=== PATIENT | female | born 1985 | race Caucasian/White ===

== ENCOUNTER 2022-07-27 23:00 | Emergency (ER) | END 2022-07-28 00:03 | disposition left against medical advice (07) | LOC: ERS 23:00 | DX: Z53.21 Procedure and treatment not carried out due to patient leaving prior to being seen by health care provider (principal) ==

== ENCOUNTER 2023-01-14 17:21 | Emergency (ER) | payer SELFPAY ==
[2023-01-14 19:59] LABS: #Basophils 0.1 thou/uL (0.0-0.2); #Eosinphils 0.2 thou/uL (0.0-0.7); #Lymphocytes 1.8 thou/uL (1.20-3.40); #Monocytes 0.5 thou/uL (0.11-0.59); #Neutrophils 3.9 thou/uL (1.40-6.50); %Basophils 1.1 % (0.0-1.0); %Eosinophils 3.4 % (0.0-10.0); %Lymphocytes 28.1 % (21.0-51.0); %Monocytes 7.3 % (0.0-10.0); Hemoglobin 13.3 g/dL (12.0-16.0); Mean Corpuscular HGB CONC 34.8 g/dL (32.0-36.0); Mean Corpuscular Hemoglobin 29.9 pg (27.0-31.0); Mean Corpuscular Volume 85.7 fl (78.0-98.0); Mean Platelet Volume 8.1 fL (7.4-10.4); Platelet Count 325 10x3/uL (130-400); RBC Distribution Width 11.9 % (11.5-14.5); Red Blood Cell (RBC) Count 4.46 mill/uL (4.20-5.40); White Blood Cell (WBC) Count 6.5 10x3/uL (4.8-10.8)
[2023-01-14 20:20] LABS: ALT (SGPT) 18 U/L (8-55); AST (SGOT) 15 U/L (5-34); Albumin 4.7 g/dL (3.5-5.0); Alkaline Phosphatase 76 U/L (40-110); Anion Gap 13 mmol/L (10-20); BUN (Urea Nitrogen) 12 mg/dL (7.0-18.7); Bilirubin, Total Less than 0.2 mg/dL (0.2-1.2); Calc. Creatinine Clearance 0 mL/min (70-130); Calcium 9.3 mg/dL (7.8-10.44); Carbon Dioxide 23 mmol/L (22-29); Chloride 102 mmol/L (98-107); Estimated GFR 79; Globulin 2.9 g/dL (2.4-3.5); Glucose 91 mg/dL (70-105); Lipase 14 U/L (8-78); Potassium 4.1 mmol/L (3.5-5.1); Protein, Total 7.6 g/dL (6.0-8.3); Sodium 134 mmol/L (136-145)
== END 2023-01-14 23:06 | disposition home or self-care (01) ==
LOC: ERS 17:21
DX: F41.1 Generalized anxiety disorder (principal); J45.901 Unspecified asthma with (acute) exacerbation; R07.9 Chest pain, unspecified; E78.5 Hyperlipidemia, unspecified
CPT/HCPCS: 36415; 71045; 76705; 80053; 83690; 84484; 85025; 93005

== ENCOUNTER 2023-02-06 16:07 | Emergency (ER) | payer OTHER, SELFPAY ==
[2023-02-06] MEDS ORDERED: Oxymetazoline HCl 0.05% (30 ML BOT) ONE (16:27)
[2023-02-06] MEDS ORDERED: Ipratropium/Albuterol 3 ML NEB ONE (16:47)
[2023-02-06] MEDS ORDERED: predniSONE 20 MG TAB ONE (17:43)
[2023-02-06] MEDS ORDERED: Ketorolac Tromethamine 30 MG/ML VIAL ONE (17:45)
[2023-02-06 17:53] LABS: SARS-CoV-2 NAA Rapid Test Not Detected (NotDetected)
[2023-02-06 17:54] LABS: Bilirubin Negative (Negative); Blood, Urine Negative (Negative); Clarity Clear (Clear); Glucose, Urine (Dipstick) Normal (Negative); Ketone, Urine Negative (Negative); Leukocyte Negative Leu/uL (Negative); Nitrite Negative (Negative); Protein, Urine (Dipstick) Negative (Neg-Trace); Specific Gravity, Urine 1.006 (1.002-1.036); Urobilinogen Normal mg/dL (Less than 2)
[2023-02-06] MEDS ORDERED: Albuterol 200 PUFF INH ONE (18:08)
== END 2023-02-06 18:38 | disposition home or self-care (01) ==
LOC: ERS 16:07
DX: R30.0 Dysuria (principal); R09.81 Nasal congestion; F17.210 Nicotine dependence, cigarettes, uncomplicated; Z20.822 Contact with and (suspected) exposure to COVID-19; Z79.899 Other long term (current) drug therapy
CPT/HCPCS: 81003; 94640; 94664; 96372; J1885; J7512; J7620

== ENCOUNTER 2023-02-11 11:41 | Emergency (ER) | payer OTHER ==
[2023-02-11 12:28] LABS: #Lymphocytes 1.2 thou/uL (1.20-3.40); #Monocytes 0.3 thou/uL (0.11-0.59); #Neutrophils 6.3 thou/uL (1.40-6.50); %Basophils 0.4 % (0.0-1.0); %Eosinophils 0.1 % (0.0-10.0); %Lymphocytes 14.9 % (21.0-51.0); %Monocytes 4.3 % (0.0-10.0); %Neutrophils 80.3 % (42.0-75.0); Hemoglobin 13.7 g/dL (12.0-16.0); Mean Corpuscular Hemoglobin 29.9 pg (27.0-31.0); Mean Corpuscular Volume 85.5 fl (78.0-98.0); Mean Platelet Volume 7.3 fL (7.4-10.4); Platelet Count 380 10x3/uL (130-400); RBC Distribution Width 11.8 % (11.5-14.5); Red Blood Cell (RBC) Count 4.58 mill/uL (4.20-5.40); White Blood Cell (WBC) Count 7.9 10x3/uL (4.8-10.8)
[2023-02-11 12:52] LABS: ALT (SGPT) 12 U/L (8-55); AST (SGOT) 10 U/L (5-34); Albumin 4.8 g/dL (3.5-5.0); Alkaline Phosphatase 73 U/L (40-110); Anion Gap 14 mmol/L (10-20); BUN (Urea Nitrogen) 8 mg/dL (7.0-18.7); Bilirubin, Total 0.2 mg/dL (0.2-1.2); Calc. Creatinine Clearance 0 mL/min (70-130); Calcium 9.9 mg/dL (7.8-10.44); Carbon Dioxide 24 mmol/L (22-29); Chloride 103 mmol/L (98-107); Estimated GFR 100; Globulin 3.1 g/dL (2.4-3.5); Glucose 113 mg/dL (70-105); Potassium 3.4 mmol/L (3.5-5.1); Protein, Total 7.9 g/dL (6.0-8.3); Sodium 138 mmol/L (136-145)
[2023-02-11 14:28] LABS: Bilirubin Negative (Negative); Blood, Urine Negative (Negative); Clarity Clear (Clear); Glucose, Urine (Dipstick) Normal (Negative); Ketone, Urine Trace mg/dL (Negative); Leukocyte Negative Leu/uL (Negative); Nitrite Negative (Negative); Protein, Urine (Dipstick) 20 mg/dL (Neg-Trace); Specific Gravity, Urine 1.027 (1.002-1.036)
[2023-02-11] MEDS ORDERED: Potassium Chloride 20 MEQ TAB ONE (14:40)
[2023-02-11] MEDS ORDERED: Dicyclomine 20 MG TAB ONE (14:40)
[2023-02-11] MEDS ORDERED: Ondansetron ODT 4 MG TAB ONE (14:40)
[2023-02-11] MEDS ORDERED: Albuterol 200 PUFF INH ONE (14:45)
== END 2023-02-11 15:56 | disposition home or self-care (01) ==
LOC: ERS 11:41
DX: S20.212A Contusion of left front wall of thorax, initial encounter (principal); K52.9 Noninfective gastroenteritis and colitis, unspecified; E87.6 Hypokalemia; J45.909 Unspecified asthma, uncomplicated; F17.210 Nicotine dependence, cigarettes, uncomplicated; W05.0XXA Fall from non-moving wheelchair, initial encounter
CPT/HCPCS: 36415; 76705; 80053; 81003; 83690; 85025; J7611; Q0162

== ENCOUNTER 2023-06-21 05:50 | Emergency (ER) | payer BC, OTHER | END 2023-06-21 06:31 | disposition home or self-care (01) | LOC: ERS 05:50 | DX: U07.1 COVID-19 (principal); R11.2 Nausea with vomiting, unspecified; F17.210 Nicotine dependence, cigarettes, uncomplicated | CPT/HCPCS: 99284 ==

== ENCOUNTER 2023-08-03 14:16 | Emergency (ER) | payer BC ==
[2023-08-03 14:32] LABS: #Eosinphils 0.2 thou/uL (0.0-0.7); #Monocytes 0.6 thou/uL (0.11-0.59); #Neutrophils 4.3 thou/uL (1.40-6.50); %Basophils 0.6 % (0.0-1.0); %Lymphocytes 21.2 % (21.0-51.0); %Monocytes 8.7 % (0.0-10.0); %Neutrophils 66.2 % (42.0-75.0); Hematocrit 34.4 % (36.0-47.0); Hemoglobin 12.1 g/dL (12.0-16.0); Mean Corpuscular HGB CONC 35.2 g/dL (32.0-36.0); Mean Corpuscular Hemoglobin 29.8 pg (27.0-31.0); Mean Corpuscular Volume 84.7 fl (78.0-98.0); Platelet Count 404 10x3/uL (130-400); RBC Distribution Width 12.8 % (11.5-14.5); Red Blood Cell (RBC) Count 4.06 mill/uL (4.20-5.40); White Blood Cell (WBC) Count 6.4 10x3/uL (4.8-10.8)
[2023-08-03 14:54] LABS: ALT (SGPT) 9 U/L (8-55); AST (SGOT) 8 U/L (5-34); Albumin 4.8 g/dL (3.5-5.0); Alkaline Phosphatase 69 U/L (40-110); Anion Gap 11 mmol/L (10-20); BUN (Urea Nitrogen) 6 mg/dL (7.0-18.7); Bilirubin, Total 0.2 mg/dL (0.2-1.2); Calc. Creatinine Clearance 0 mL/min (70-130); Calcium 9.4 mg/dL (7.8-10.44); Carbon Dioxide 28 mmol/L (22-29); Chloride 97 mmol/L (98-107); Estimated GFR 103; Globulin 2.3 g/dL (2.4-3.5); Glucose 114 mg/dL (70-105); Potassium 3.6 mmol/L (3.5-5.1); Protein, Total 7.1 g/dL (6.0-8.3); Sodium 132 mmol/L (136-145)
[2023-08-03] MEDS ORDERED: Acetaminophen 500 MG TAB ONE (16:02)
[2023-08-03] MEDS ORDERED: Ondansetron ODT 4 MG TAB ONE (16:02)
== END 2023-08-03 17:22 | disposition home or self-care (01) ==
LOC: ERS 14:16
DX: R05.9 Cough, unspecified (principal); F17.210 Nicotine dependence, cigarettes, uncomplicated
CPT/HCPCS: 36415; 80053; 85025; 99284; Q0162

== ENCOUNTER 2023-10-02 11:17 | Inpatient (IN) | payer BC ==
[2023-10-02] MEDS ORDERED: Ipratropium/Albuterol 3 ML NEB ONE (11:58)
[2023-10-02] MEDS ORDERED: Dexamethasone 10 MG/ML VIAL ONE (11:58)
[2023-10-02] MEDS ORDERED: Magnesium 2 GM/50 ML BAG (IN WATER) ONE (11:59)
[2023-10-02 12:03] LABS: #Basophils 0.1 thou/uL (0.0-0.2); #Eosinphils 0.2 thou/uL (0.0-0.7); #Monocytes 0.4 thou/uL (0.11-0.59); #Neutrophils 2.7 thou/uL (1.40-6.50); %Basophils 1.1 % (0.0-1.0); %Eosinophils 4.9 % (0.0-10.0); %Lymphocytes 25.8 % (21.0-51.0); %Monocytes 9.2 % (0.0-10.0); %Neutrophils 58.6 % (42.0-75.0); Hematocrit 34.5 % (36.0-47.0); Hemoglobin 12.4 g/dL (12.0-16.0); Mean Corpuscular HGB CONC 35.9 g/dL (32.0-36.0); Mean Corpuscular Hemoglobin 30.2 pg (27.0-31.0); Mean Corpuscular Volume 83.9 fl (78.0-98.0); Platelet Count 338 10x3/uL (130-400); RBC Distribution Width 12.7 % (11.5-14.5); Red Blood Cell (RBC) Count 4.11 mill/uL (4.20-5.40); White Blood Cell (WBC) Count 4.7 10x3/uL (4.8-10.8)
[2023-10-02 12:18] LABS: BHCG - Serum Negative (NEGATIVE); Pregs Control Background? CLEAR/WHITE (CLR/WHITE); Pregs Control Bar Appear? YES (CONTROL BAR)
[2023-10-02 12:28] LABS: ALT (SGPT) 9 U/L (8-55); AST (SGOT) 11 U/L (5-34); Albumin 4.6 g/dL (3.5-5.0); Alkaline Phosphatase 71 U/L (40-110); Anion Gap 14 mmol/L (10-20); BUN (Urea Nitrogen) 4 mg/dL (7.0-18.7); Bilirubin, Total 0.4 mg/dL (0.2-1.2); Calc. Creatinine Clearance 0 mL/min (70-130); Carbon Dioxide 21 mmol/L (22-29); Chloride 92 mmol/L (98-107); Estimated GFR 116; Globulin 2.6 g/dL (2.4-3.5); Glucose 90 mg/dL (70-105); Lipase 6 U/L (8-78); Protein, Total 7.2 g/dL (6.0-8.3); Sodium 123 mmol/L (136-145)
[2023-10-02 12:32] LABS: Troponin I Less than 0.010 ng/mL (< 0.028)
[2023-10-02 13:06] LABS: SARS-CoV-2 NAA Rapid Test Not Detected (NotDetected)
[2023-10-02] MEDS ORDERED: LevoFLOXacin 750 mg/D5W 150 ml Premix Bag ONE (13:27)
[2023-10-02 13:52] LABS: Acetaminophen Less than 10 mcg/mL (10.0-30.0); Alcohol Less than 10.0 mg/dL (Less than 10); Salicylate Less than 8.0 mg/dL (15.0-30.0)
[2023-10-02] MEDS ORDERED: Acetaminophen 650 MG Suppository PR PRN (14:51)
[2023-10-02] MEDS: Nicotine 14 MG PATCH TD PRN (17:13)
[2023-10-02 17:27] VITALS: BMI 28.5
[2023-10-02] MEDS: Ipratropium/Albuterol 3 ML NEB NEB SCH (19:13)
[2023-10-02 19:52] LABS: Legionella Urinary Ag Negative (Negative); Strep pneumo Urine Ag NEGATIVE (NEGATIVE)
[2023-10-02] MEDS: Mometasone/Formoterol 200/5 60 PUFF INH SCH (20:07)
[2023-10-02] MEDS: OXcarbazepine 300 MG TAB PO SCH (20:22)
[2023-10-02] MEDS: Gabapentin 400 MG CAP PO SCH (20:23)
[2023-10-02] MEDS: Famotidine 20 MG TAB PO SCH (20:23)
[2023-10-02] MEDS: Benztropine 1 MG TAB PO SCH (20:23)
[2023-10-02 20:35] LABS: Anion Gap 15 mmol/L (10-20); BUN (Urea Nitrogen) 6 mg/dL (7.0-18.7); Calc. Creatinine Clearance 133 mL/min (70-130); Calcium 9.5 mg/dL (7.8-10.44); Carbon Dioxide 20 mmol/L (22-29); Chloride 98 mmol/L (98-107); Estimated GFR 104; Glucose 131 mg/dL (70-105); Potassium 4.3 mmol/L (3.5-5.1); Sodium 129 mmol/L (136-145)
[2023-10-02] MEDS ORDERED: hydrOXYzine 25 MG TAB PO SCH (21:15)
[2023-10-02] MEDS: methylPREDNISolone Sod Succ 40 MG VIAL IVP SCH (21:31)
[2023-10-03] MEDS: Ipratropium/Albuterol 3 ML NEB NEB SCH ×4 (00:27→19:13)
[2023-10-03] MEDS: methylPREDNISolone Sod Succ 40 MG VIAL IVP SCH ×3 (05:30→21:15)
[2023-10-03 06:40] LABS: #Monocytes 0.5 thou/uL (0.11-0.59); #Neutrophils 6.4 thou/uL (1.40-6.50); %Basophils 0.1 % (0.0-1.0); %Lymphocytes 11.4 % (21.0-51.0); %Monocytes 5.7 % (0.0-10.0); %Neutrophils 82.3 % (42.0-75.0); Hematocrit 34.2 % (36.0-47.0); Hemoglobin 12.2 g/dL (12.0-16.0); Mean Corpuscular HGB CONC 35.7 g/dL (32.0-36.0); Mean Corpuscular Hemoglobin 29.7 pg (27.0-31.0); Mean Corpuscular Volume 83.2 fl (78.0-98.0); Mean Platelet Volume 9.3 fL (7.4-10.4); Platelet Count 358 10x3/uL (130-400); RBC Distribution Width 12.5 % (11.5-14.5); Red Blood Cell (RBC) Count 4.11 mill/uL (4.20-5.40); White Blood Cell (WBC) Count 7.8 10x3/uL (4.8-10.8)
[2023-10-03 07:13] LABS: Anion Gap 15 mmol/L (10-20); BUN (Urea Nitrogen) 9 mg/dL (7.0-18.7); Calc. Creatinine Clearance 149 mL/min (70-130); Carbon Dioxide 20 mmol/L (22-29); Chloride 95 mmol/L (98-107); Estimated GFR 115; Glucose 116 mg/dL (70-105); Potassium 4.3 mmol/L (3.5-5.1); Sodium 126 mmol/L (136-145)
[2023-10-03] MEDS: Mometasone/Formoterol 200/5 60 PUFF INH SCH ×2 (08:03→19:15)
[2023-10-03] MEDS: Famotidine 20 MG TAB PO SCH ×2 (08:41→19:57)
[2023-10-03] MEDS: Gabapentin 400 MG CAP PO SCH ×3 (08:41→19:57)
[2023-10-03] MEDS: Benztropine 1 MG TAB PO SCH ×2 (08:41→19:57)
[2023-10-03] MEDS: OXcarbazepine 300 MG TAB PO SCH ×2 (08:43→19:58)
[2023-10-03] MEDS: Propranolol 10 MG TAB PO SCH ×3 (08:43→19:58)
[2023-10-03] MEDS ORDERED: ATOMOXETINE HCL 100 MG PO SCH (09:00)
[2023-10-03] MEDS ORDERED: LevoFLOXacin 750 mg/D5W 750 MG in Premix 1 BAG IVPB SCH (15:00)
[2023-10-03] MEDS: Guaifenesin DM 100-10/5 ML UDCUP PO PRN ×2 (17:12→19:59)
[2023-10-03] MEDS: Acetaminophen 325 MG TAB PO PRN (19:58)
[2023-10-03] MEDS: Nicotine 14 MG PATCH TD PRN (19:59)
[2023-10-03] MEDS ORDERED: Montelukast Sodium 10 mg Tablet PO SCH (21:00)
[2023-10-03] MEDS ORDERED: Valbenazine Tosylate [Ingrezza] 80 MG Capsule PO SCH (21:00)
[2023-10-04] MEDS: Ipratropium/Albuterol 3 ML NEB NEB SCH ×2 (01:35→07:12)
[2023-10-04] MEDS: Guaifenesin DM 100-10/5 ML UDCUP PO PRN ×2 (02:29→06:27)
[2023-10-04] MEDS: methylPREDNISolone Sod Succ 40 MG VIAL IVP SCH (05:38)
[2023-10-04 06:34] LABS: Anion Gap 15 mmol/L (10-20); BUN (Urea Nitrogen) 10 mg/dL (7.0-18.7); Calc. Creatinine Clearance 144 mL/min (70-130); Calcium 9.3 mg/dL (7.8-10.44); Carbon Dioxide 23 mmol/L (22-29); Chloride 93 mmol/L (98-107); Estimated GFR 114; Glucose 107 mg/dL (70-105); Potassium 4.5 mmol/L (3.5-5.1); Sodium 126 mmol/L (136-145)
[2023-10-04] MEDS: Mometasone/Formoterol 200/5 60 PUFF INH SCH (07:12)
[2023-10-04 07:28] VITALS: BP 135/87; TEMP 97.8
[2023-10-04] MEDS: Gabapentin 400 MG CAP PO SCH (07:39)
[2023-10-04] MEDS: Propranolol 10 MG TAB PO SCH (07:39)
[2023-10-04] MEDS: OXcarbazepine 300 MG TAB PO SCH (07:40)
[2023-10-04] MEDS: Acetaminophen 325 MG TAB PO PRN (07:40)
[2023-10-04] MEDS: Benztropine 1 MG TAB PO SCH (07:40)
[2023-10-04] MEDS: Famotidine 20 MG TAB PO SCH (07:40)
[2023-10-05] MEDS ORDERED: FLU VACC QS2023-24(6MOS UP)/PF 60 MCG/0.5 ML SYRINGE IM ONE (19:30)
== END 2023-10-04 10:20 | disposition home or self-care (01) | DRG 202 ==
LOC: ERS 11:17 → T4-B 14:06
PROVIDERS: ADMIT Hospitalist; ATTEND Hospitalist
DX: J45.901 Unspecified asthma with (acute) exacerbation (principal); E87.1 Hypo-osmolality and hyponatremia; F41.9 Anxiety disorder, unspecified; F31.9 Bipolar disorder, unspecified; F20.9 Schizophrenia, unspecified; F17.210 Nicotine dependence, cigarettes, uncomplicated; Z88.1 Allergy status to other antibiotic agents; Z88.8 Allergy status to other drugs, medicaments and biological substances; Z90.49 Acquired absence of other specified parts of digestive tract; Z98.890 Other specified postprocedural states; Z90.710 Acquired absence of both cervix and uterus; Z91.013 Allergy to seafood; Z11.52 Encounter for screening for COVID-19
CPT/HCPCS: 36415; 71045; 80048; 80053; 80307; 82550; 83690; 84145; 84484; 84703; 85025; 87040; 87449; 87899; 93005; 94664; J1100; J1650; J1956; J2920; J3475; J7611; J7620

== ENCOUNTER 2023-11-21 17:02 | Emergency (ER) | payer BC, SELFPAY ==
[2023-11-21 18:47] LABS: SARS-CoV-2 NAA Rapid Test Not Detected (NotDetected)
== END 2023-11-21 18:56 | disposition home or self-care (01) ==
LOC: ERS 17:02
DX: B34.9 Viral infection, unspecified (principal); Z20.822 Contact with and (suspected) exposure to COVID-19; F17.210 Nicotine dependence, cigarettes, uncomplicated; E78.5 Hyperlipidemia, unspecified; Z79.899 Other long term (current) drug therapy
CPT/HCPCS: 99283

== ENCOUNTER 2024-06-15 11:58 | Outpatient (CLI) | payer OTHER | END 2024-06-15 11:59 | disposition home or self-care (01) | LOC: BICRAD 11:58 | PROVIDERS: ATTEND Internal Medicine | DX: Z02.71 Encounter for disability determination (principal); M54.50 Low back pain, unspecified; M47.816 Spondylosis without myelopathy or radiculopathy, lumbar region | CPT/HCPCS: 72100 ==

== ENCOUNTER 2024-09-03 04:20 | Emergency (ER) | payer OTHER, SELFPAY ==
[2024-09-03] MEDS ORDERED: Ipratropium/Albuterol 3 ML NEB ONE ×2 (05:14→05:46)
[2024-09-03] MEDS ORDERED: Dexamethasone 10 MG/ML VIAL ONE (05:14)
== END 2024-09-03 06:40 | disposition home or self-care (01) ==
LOC: ERS 04:20
DX: J06.9 Acute upper respiratory infection, unspecified (principal); J44.1 Chronic obstructive pulmonary disease with (acute) exacerbation; I10 Essential (primary) hypertension; F17.210 Nicotine dependence, cigarettes, uncomplicated
CPT/HCPCS: 71046; 87428; J1100; J7620

== ENCOUNTER 2024-09-12 16:29 | Emergency (ER) | payer SELFPAY ==
[2024-09-12] MEDS ORDERED: HYDROcodone/Acetaminophen 10/325 mg Tablet ONE (17:46)
[2024-09-12] MEDS ORDERED: Lidocaine 1% w/Epinephrine 1:100K 20 ML VIAL ONE (17:46)
== END 2024-09-13 17:10 | disposition home or self-care (01) ==
LOC: ERS 16:29
DX: L02.415 Cutaneous abscess of right lower limb (principal); I10 Essential (primary) hypertension; F17.210 Nicotine dependence, cigarettes, uncomplicated
CPT/HCPCS: 10060

== ENCOUNTER 2024-09-22 18:46 | Emergency (ER) | payer MEDICAID, SELFPAY ==
[2024-09-22] MEDS ORDERED: Ketorolac Tromethamine 30 MG (1 mL) VIAL ONE (18:59)
[2024-09-22 19:18] LABS: #Basophils 0.07 10x3/uL (0.0-0.2); %Basophils 0.8 % (0.0-1.0); %Lymphocytes 23.3 % (21.0-51.0); %Monocytes 7.3 % (0.0-10.0); %Neutrophils 67.3 % (42.0-75.0); Hematocrit 37.7 % (36.0-47.0); Hemoglobin 12.4 g/dL (12.0-16.0); Mean Corpuscular HGB CONC 32.9 g/dL (32.0-36.0); Mean Corpuscular Hemoglobin 28.4 pg (27.0-31.0); Mean Corpuscular Volume 86.5 fL (78.0-98.0); Platelet Count 393 10x3/uL (130-400); RBC Distribution Width 12.8 % (11.5-14.5); Red Blood Cell (RBC) Count 4.36 mill/uL (4.20-5.40)
[2024-09-22 19:37] LABS: ALT (SGPT) 9 U/L (8-55); AST (SGOT) 9 U/L (5-34); Albumin 4.3 g/dL (3.5-5.0); Alkaline Phosphatase 70 U/L (40-110); Anion Gap 15 mmol/L (10-20); BUN (Urea Nitrogen) 5 mg/dL (7.0-18.7); Bilirubin, Total 0.2 mg/dL (0.2-1.2); Calc. Creatinine Clearance 0 mL/min (70-130); Calcium 9.3 mg/dL (7.8-10.44); Carbon Dioxide 21 mmol/L (22-29); Chloride 106 mmol/L (98-107); Estimated GFR 96; Glucose 103 mg/dL (70-105); Potassium 3.6 mmol/L (3.5-5.1); Protein, Total 7.3 g/dL (6.0-8.3); Sodium 138 mmol/L (136-145)
== END 2024-09-22 21:48 | disposition home or self-care (01) ==
LOC: ERS 18:46
DX: Z48.817 Encounter for surgical aftercare following surgery on the skin and subcutaneous tissue (principal); L02.415 Cutaneous abscess of right lower limb; I10 Essential (primary) hypertension; J44.89 Other specified chronic obstructive pulmonary disease; F17.210 Nicotine dependence, cigarettes, uncomplicated
CPT/HCPCS: 36415; 80053; 83605; 85025; 87070; 87077; 87205; 96372; 99282; J1885